=== PATIENT | male | born 1980 | race Caucasian/White ===

== ENCOUNTER 2016-12-28 17:20 | Emergency (ER) | payer BC ==
[2016-12-28 17:28] VITALS: BP 142/65
--- OUTSIDE RECORDS SUMMARY | 2016-12-28 17:53 | XMS REPORT | Continuity of Care Document ---
:1980 Author Organization [facility] [place] [address] Care Team Providers Name Role Phone Unavailable Primary Care Provider Unavailable Source Comments This disclosure is being made pursuant to the Invenias program and maynot contain all information available regarding this patient.[facility] Active Allergies and Adverse Reactions Not on File Current Medications Be aware that medications may not be up to date as of this document. Alwaysverify current medications with the patient. Not on file Active Problems Not on file Social History Tobacco Use Types Packs/Day Years Used Date Never Assessed Last Filed Vital Signs Vital Sign Reading Time Taken Blood Pressure 110/68 10/01/2011 11:00 AM CREDIT ASSOCIATE Pulse 78 10/01/2011 11:00 AM CREDIT ASSOCIATE Temperature 36.2 C (97.2 F) 10/01/2011 11:00 AM CREDIT ASSOCIATE Respiratory Rate - - Height 1.854 m (6' 1") 10/01/2011 11:00 AM CREDIT ASSOCIATE Weight 77.564 kg (171 lb) 10/01/2011 11:00 AM CREDIT ASSOCIATE Body Mass Index 22.57 10/01/2011 11:00 AM CREDIT ASSOCIATE Oxygen Saturation - - Plan of Care Health Maintenance Due Date Last Done Comments Retired-Pertussis Vaccine Adult 1999 Retired-Tetanus Vaccine Adult 1999 Retired-INFLUENZA VACCINE 04/26/2015 Results from Last 3 Months Not on file
[2016-12-28 17:54] LABS: Hemoglobin 13.7 gm/dL (13.5-18.0); Mean Corpuscular Hemoglobin 28.8 pg (27-31); Mean Corpuscular Hgb Conc 34.3 g/dl (32-36); Mean Platelet Volume 10.4 fl (6.0-9.5); Neutrophil % 44.8 % (42-75.0); Platelet Count 214 K/mm3 (150-450); Red Blood Count 4.76 M/mm3 (4.7-6.0); Red Cell Distribution Width 12.5 % (11.5-14.0); White Blood Count 6.7 K/mm3 (4.0-10.5)
--- OUTSIDE RECORDS SUMMARY | 2016-12-28 17:55 | XMS REPORT | Continuity of Care Document ---
:1980 Author Organization [facility] ([facility]) Address [address] [place] [address] Phone [phone] Care Team Providers Name Role Phone [phone], Need To Check Primary Care Provider Unavailable Source Comments This disclosure is being made pursuant to the Care Everywhere program, applicable federal and state laws, and may not contain all informaitonavailable regarding this patient.[facility] ([facility]) Active Allergies and Adverse Reactions Not on File Current Medications Not on file Active Problems Not on file Most Recent Encounters Date Type Specialty Providers Description 10/03/2016 Office Visit [facility] Pathology Default, [facility] Provider Dx: Pre-employment drug Lab, [facility] screening (Primary Dx) Social History Tobacco Use Types Packs/Day Years Used Date Never Assessed Plan of Care Health Maintenance Due Date Last Done Comments Hepatitis B Vaccine (1 of 3 - Primary Series) 1980 Tdap Vaccine 1991 Lipid Disorder Screening 1998 MMR Vaccine 1998 Td Vaccine 1998 Varicella Vaccine (1 of 2 - Adult - No Evidence of 1998 Immunity) Influenza Vaccine: Seasonal (#1) 03/26/2016 Results from Last 3 Months [facility] OF CUSTODY (10/03/2016 11:30 AM) Component Value Range [facility] Chain of Custody PRE EMPLOYMENT URINE DRUG FOR LESLIE BLDG SENT FED EX 10/03/16 Specimen Urine
--- NOTE | 2016-12-28 17:59 | ERNOTE ---
Integumentary HPI - Narrative Date of Service: 12/28/16 - General Presenting Symptoms: insect bite Time Seen by Provider: 12/28/16 17:43 Source: patient Exam Limitations: no limitations - Immun/Allergies/Home Medications Immunizations: IMMUNIZATION HX Immunizations Up to Date Yes History of Influenza Vaccine No Hx Pneumococcal Vaccination No Allergies/Adverse Reactions: Allergies Allergy/AdvReac Type Severity Reaction Status Date / Time amoxicillin trihydrate Allergy Hives Verified 12/28/16 17:27 [From Amoxil] codeine Allergy Anaphylaxis Verified 12/28/16 17:27 benzonatate AdvReac Diarrhea Verified 12/28/16 17:27 [From Tessalon Perles] Home Medications: HOME MEDICATIONS Doxycycline Monohydrate 100 mg PO BID #20 tablet 12/28/16 [Last Taken Unknown] - History of Present Illness Narrative: Pt. comes in with c/o L lateral scapula raised red area where he had a tick bite three weeks ago. Pt. states that he has been feeling worse lately with fatigue and malaise pt states that the rash is itchy but not painful on his scapula. Pt. was seen at the [facility] clinic on the 08 of December and had an I and D of the wound but this redness was not present at this time. Review of Systems - Review of Systems Constitutional: Present: fatigue, malaise. Absent: recent illness, fever, chills, weakness EYE: Present: no symptoms reported ENT: Present: no symptoms reported. Absent: nose pain, nose congestion, nasal drainage Respiratory: Present: no symptoms reported Cardiology: Present: no symptoms reported. Absent: chest pain, palpitations, edema Gastrointestinal/Abdominal: Present: no symptoms reported. Absent: nausea, vomiting, diarrhea Genitourinary: Present: no symptoms reported Musculoskeletal: Present: no symptoms reported. Absent: back pain, joint pain Skin: Present: rash - L scapiula red raised flat platelike Neurological: Present: no symptoms reported. Absent: headache, dizziness/light- headedness, numbness, tingling Endocrine: Present: no symptoms reported Hematologic/Lymphatic: Present: no symptoms reported All Other Systems: All systems neg except as marked - Patient's Past Medical History Patient History - Medical: No pertinent hx Patient History - Cardiac/Respiratory: No pertinent hx Patient History - Cancer: No Hx of Cancer Patient History - Surgical Procedures: Appendectomy, T & A Patient History - Other: None - Social History Living Situations: home Psych History: No pertinent hx - Immunizations Immunizations Up to Date: Yes Hx Pneumococcal Vaccination: No History of Influenza Vaccine: No Physical Exam - Physical Exam General Appearance: Present: wd/wn, alert, no apparent distress Eye Exam: Normal inspection: bilateral, PERRL: bilateral, EOMI: bilateral Ears, Nose, Throat: Present: normal ENT inspection, normal pharynx Neck: Present: normal inspection, nontender. Absent: lymphadenopathy (R), lymphadenopathy (L) Respiratory: Present: no respiratory distress, normal breath sounds, no accessory muscle use, chest nontender, lungs clear Cardiovascular/Chest: Present: regular rate, rhythm, no murmur, normal peripheral pulses Gastrointestinal/Abdominal: Present: normal bowel sounds, nontender, nondistended, soft, no organomegaly Back Exam: Present: normal inspection, normal range of motion, no CVA tenderness , no vertebral tenderness Extremity Exam: Present: normal inspection, non-tender, normal range of motion, no edema Neurological Exam: Present: alert, oriented, normal mood/affect, no motor/ sensory deficits, 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 Absent: pallor ED Progress - Date and Time Seen: Date and Time: 12/28/16 18:26 As pt. is asymptomatic but does have erythema migrans at this time will start on doxy and have follow up but feel that he does not need further treatment or hospitalization at this time. - Results and Orders Patient's Lab Results:: I have reviewed the patient's lab results. - Vital Signs Patient's Vital Signs:: I have reviewed the patient's vital signs. Vital Signs: Vital Signs 12/28/16 17:25 Temperature 37.1 C Pulse Rate 74 Respiratory 16 Rate Blood Pressure 142/65 O2 Sat by Pulse 97 Oximetry - EKG EKG: NSR EKG read: Reviewed by me EKG Comments: interpretted by Dr Avilez - Progress/Reassessment Chief Complaint: Insect Bite Progress:: Unchanged Departure Clinical Impression: Erythema migrans (Lyme disease) - Departure Disposition: Home self-care Condition: Good Instructions: Lyme Disease Additional Instructions: Please call here Saturday morning and ask nurses to help you get appointment with a primary provider next week. Prescriptions: Doxycycline Monohydrate 100 mg PO BID #20 tablet
[2016-12-28 18:13] LABS: ALT 20 U/L (19-67); AST 17 U/L (0-48); Albumin * 4.2 gm/dl (3.4-5.0); Alkaline Phosphatase * 34 U/L (50-170); Anion Gap 10.2 mmol/L (6.8-13.8); BUN/Creatinine Ratio 14.9 (9.0-21.6); Bilirubin, Total 0.4 mg/dL (0.0-1.1); Blood Urea Nitrogen 14 mg/dL (6-23); Ca. Corrected For Albumin 8.2 mg/dL (8.4-10.2); Calcium * 8.7 mg/dL (7.9-10.9); Carbon Dioxide 33.7 mmol/L (24-32.6); Chloride 104 mmol/L (97-106); Glucose * 100 mg/dL (70-110); Potassium 3.9 mmol/L (3.4-4.6); Sodium 144 mmol/L (132-142); Total Protein 7.4 gm/dL (6.2-8.2)
[2016-12-28 18:14] LABS: Troponin I Less than 0.017 ng/ml (0.00-0.10)
[2017-01-03 20:44] LABS: 18KD (IGG) Band NON-REACTIVE; 23KD (IGG) Band NON-REACTIVE; 28KD (IgG) Band NON-REACTIVE; 30KD (IgG) Band NON-REACTIVE; 39KD (IgG) Band NON-REACTIVE; 39KD (IgM) Band NON-REACTIVE; 41KD (IgG) Band NON-REACTIVE; 45KD (IgG) Band NON-REACTIVE; 58KD (IgG) Band NON-REACTIVE; 66KD (IgG) Band NON-REACTIVE; 93KD (IgG) Band NON-REACTIVE; B burgdorferi IgM WB NEGATIVE (NEGATIVE); B.burgdorferi Ab (IgG) WB NEGATIVE (NEGATIVE)
[2017-01-03 22:07] LABS: 41KD (IgM) Band NON-REACTIVE
== END 2016-12-28 18:40 | disposition home or self-care (01) ==
LOC: ER 17:20
DX: A26.0 Cutaneous erysipeloid (principal)